=== PATIENT | male | born 2000 | race Caucasian/White ===

== ENCOUNTER 2023-07-12 09:12 | Outpatient (CLI) | payer OTHER ==
--- NOTE | 2023-07-12 14:38 | MRI Report ---
PROCEDURE: BRAIN WO INDICATIONS: HEADACHE TECHNIQUE: Noncontrast axial T1 spin echo, axial T2 fast spin echo, sagittal and axial FLAIR, coronal T2 fast sp in echo, axial gradient echo, axial diffusion and ADC through the brain. COMPARISON: None. FINDINGS: Image quality: Excellent. CSF Spaces: Basal cisterns are patent. No extra-axial fluid collections. Ventricles are normal in size and shape. Brain: No intracranial masses or hemorrhage. Munoz/white matter interface is normal. Brainstem appe ars normal. Diffusion-weighted images demonstrate no acute ischemic insult. No chronic ischemic ins ults. Normal intravascular flow voids are present. Skull and face: Calvarium has normal marrow signal. Orbits appear normal. Sinuses: Bilateral maxillary sinus mucosal thickening, bilateral ethmoid sinus mucosal thickening. IMPRESSION: 1. Chronic sinus disease. 2. Otherwise unremarkable brain MRI. Normal brain parenchyma. No acute intracranial process. Reviewed by: Epi Mccormick MD on 07/12/2023 2:37 PM PST Approved by: Epi Mccormick MD on 07/12/2023 2:37 PM PST Station ID: [id number]
== END 2023-07-12 09:13 | disposition home or self-care (01) ==
LOC: DI 09:12
PROVIDERS: ATTEND Student in an Organized Health Care Education/Training Program
DX: J32.2 Chronic ethmoidal sinusitis (principal); J32.0 Chronic maxillary sinusitis